=== PATIENT | male | born 1945 | race Asian ===

== ENCOUNTER 2025-06-23 15:37 | Inpatient (IN) | payer MEDICAID ==
[~2025-06-23] VITALS: Ht 172.7 cm; Wt 74.8 kg
[2025-06-23 18:02] LABS: RED BLOOD CELL COUNT(AUTO) 4.18 MIL/uL (4.5-6.0); RED CELL DISTRIBUTION WIDTH 13.3 % (11.5-15.0); WHITE BLOOD COUNT (AUTO) 5.8 K/uL (4.3-11.0)
[2025-06-23 18:06] LABS: PLATELET COUNT (AUTO) 117 K/uL (150-450)
[2025-06-23 18:06] LABS: APPEARANCE,URINE CLEAR (CLEAR); BLOOD, URINE 1+ Ery/uL (NEGATIVE); LEUKOCYTE ESTERASE ,URINE NEGATIVE (NEGATIVE); NITRITE, URINE NEGATIVE (NEGATIVE); UGLUCOSE TRACE mg/dL (NEGATIVE)
[2025-06-23 18:08] LABS: ADD URINE CULTURE NO; SQUAMOUS EPITHELIAL CELL,UR None Seen /HPF (None Seen)
[2025-06-23 18:19] LABS: ASPARTATE AMINOTRANSFERASE 18 U/L (15-37); CALCIUM, SERUM 8.3 mg/dL (8.5-10.1); CREATININE 0.9 mg/dL (0.6-1.3); SODIUM SERUM 138 mmol/L (136-145); UREA NITROGEN, BLOOD 24 mg/dL (7-18)
[2025-06-23 18:19] LABS: AMPHETAMINE, URINE NEGATIVE (NEGATIVE); BARBITURATE, URINE NEGATIVE (NEGATIVE); CANNABINOID, URINE NEGATIVE (NEGATIVE)
[2025-06-23 18:30] LABS: BENZODIAZEPINE, URINE NEGATIVE (NEGATIVE); COCCAINE, URINE NEGATIVE (NEGATIVE); OPIATE, URINE NEGATIVE (NEGATIVE)
[2025-06-23 18:32] LABS: TOTAL PROTEIN, SERUM 6.1 g/dL (6.4-8.2)
[2025-06-23 18:40] LABS: ALCOHOL, BLOOD < 3 mg/dL (0-10)
[2025-06-23] MEDS ORDERED: LEVO100T9 PO (19:18)
[2025-06-23] MEDS ORDERED: DOCU250C76 PO (19:18)
[2025-06-23] MEDS ORDERED: TRAZ-252 PO (19:18)
[2025-06-23] MEDS ORDERED: ATOR10TA PO (19:18)
[2025-06-23] MEDS ORDERED: CARB1TAB21 PO (19:18)
[2025-06-23] MEDS ORDERED: CHOL200010 PO (19:18)
[2025-06-23] MEDS ORDERED: LOSA25TA27 PO (19:18)
[2025-06-23] MEDS ORDERED: OLAN5TAB3 PO (19:18)
[2025-06-23] MEDS ORDERED: ESCI10TA PO (19:18)
[2025-06-23] MEDS ORDERED: CEPHALEXIN MONOHYDRATE 500 MG CAPSULE PO ONE (19:35)
[2025-06-23] MEDS: CEPHALEXIN MONOHYDRATE 500 MG CAPSULE PO ONE (19:35)
[2025-06-23 22:30] VITALS: BP 142/67; TEMP 98.2; O2SAT 98
[2025-06-23] MEDS ORDERED: MAGNESIUM HYDROXIDE 30 ML UDC PO PRN (22:30)
[2025-06-23] MEDS ORDERED: QUETIAPINE FUMARATE 25 MG TABLET PO PRN (22:30)
[2025-06-23] MEDS ORDERED: MAG HYDROX/AL HYDROX/SIMETH 30 ML UDC PO PRN (22:30)
[2025-06-23] MEDS ORDERED: ACETAMINOPHEN 325 MG TABLET PO PRN (22:30)
[2025-06-23] MEDS ORDERED: ZOLPIDEM TARTRATE 5 MG TABLET PO PRN (22:30)
[2025-06-23] MEDS: BLOOD SUGAR DIAGNOSTIC 1 EACH STRIP IN ONE (23:08)
[2025-06-24] MEDS ORDERED: Z GUARD REMEDY 4 OZ OINT TP PRN (01:30)
[2025-06-24] MEDS: LEVOTHYROXINE SODIUM 100 MCG TABLET PO SCH (06:14)
[2025-06-24 07:59] LABS: PLATELET COUNT (AUTO) 121 K/uL (150-450); RED BLOOD CELL COUNT(AUTO) 4.21 MIL/uL (4.5-6.0); RED CELL DISTRIBUTION WIDTH 12.9 % (11.5-15.0); WHITE BLOOD COUNT (AUTO) 5.3 K/uL (4.3-11.0)
[2025-06-24 08:00] VITALS: BP 107/57; TEMP 97.8; O2SAT 96
[2025-06-24 08:12] LABS: CALCIUM, SERUM 8.3 mg/dL (8.5-10.1); CREATININE 0.8 mg/dL (0.6-1.3); SODIUM SERUM 140.0 mmol/L (136-145); UREA NITROGEN, BLOOD 14.0 mg/dL (7-18)
[2025-06-24 08:18] LABS: LDL 69 mg/dL (0-99)
[2025-06-24] MEDS: CHOLECALCIFEROL 1,000 UNIT TABLET (VIT D3) PO SCH (08:44)
[2025-06-24] MEDS: DOCUSATE SODIUM 250 MG CAPSULE PO SCH (08:44)
[2025-06-24] MEDS: CARBIDOPA/LEVODOPA 25/100 MG 1 UDTAB PO SCH (08:45)
[2025-06-24] MEDS: ATORVASTATIN 10 MG TABLET PO SCH (08:45)
[2025-06-24] MEDS: LOSARTAN POTASSIUM 25 MG TABLET PO SCH (08:45)
[2025-06-24] MEDS: POTASSIUM CHLORIDE 20 MEQ TAB.PRT.SR PO ONE (09:08)
[2025-06-24 16:07] VITALS: BP 127/71; TEMP 97.8; O2SAT 99
[2025-06-24 20:00] VITALS: BP 119/58; TEMP 98.1; O2SAT 93
[2025-06-24] MEDS: QUETIAPINE FUMARATE 25 MG TABLET PO SCH (21:05)
[2025-06-24] MEDS ORDERED: ZOLPIDEM TARTRATE 5 MG TABLET PO PRN (22:00)
[2025-06-25 07:59] LABS: CALCIUM, SERUM 8.6 mg/dL (8.5-10.1); CREATININE 0.8 mg/dL (0.6-1.3); SODIUM SERUM 140.0 mmol/L (136-145); UREA NITROGEN, BLOOD 20.0 mg/dL (7-18)
[2025-06-25 08:00] VITALS: BP 129/69; TEMP 97.7; O2SAT 96
[2025-06-25 08:15] LABS: PLATELET COUNT (AUTO) 126 K/uL (150-450); RED BLOOD CELL COUNT(AUTO) 4.28 MIL/uL (4.5-6.0); RED CELL DISTRIBUTION WIDTH 13.2 % (11.5-15.0); WHITE BLOOD COUNT (AUTO) 6.0 K/uL (4.3-11.0)
[2025-06-25] MEDS: Z GUARD REMEDY 4 OZ OINT TP SCH (08:25)
[2025-06-25 16:08] VITALS: BP 109/54; TEMP 97.5; O2SAT 95
[2025-06-25 20:58] VITALS: BP 112/66; TEMP 98; O2SAT 98
[2025-06-26 07:00] VITALS: BP 108/69; TEMP 97.5; O2SAT 97
[2025-06-26 07:21] LABS: PLATELET COUNT (AUTO) 133 K/uL (150-450); RED BLOOD CELL COUNT(AUTO) 4.44 MIL/uL (4.5-6.0); RED CELL DISTRIBUTION WIDTH 13.1 % (11.5-15.0); WHITE BLOOD COUNT (AUTO) 5.7 K/uL (4.3-11.0)
[2025-06-26 07:38] LABS: CALCIUM, SERUM 8.9 mg/dL (8.5-10.1); CREATININE 0.8 mg/dL (0.6-1.3); SODIUM SERUM 140.0 mmol/L (136-145); UREA NITROGEN, BLOOD 18.0 mg/dL (7-18)
[2025-06-26 16:00] VITALS: BP 100/58; TEMP 98.1; O2SAT 95
[2025-06-26] MEDS: ENSURE ENLIVE 237 ML LIQUID (VANILLA) PO SCH (16:20)
[2025-06-26 20:00] VITALS: BP 147/64; TEMP 98.1; O2SAT 96
[2025-06-27 08:00] VITALS: BP 115/59; TEMP 97.8; O2SAT 96
[2025-06-27 16:04] VITALS: BP 100/59; TEMP 97.8; O2SAT 96
[2025-06-27 20:49] VITALS: BP 133/75; TEMP 98.2; O2SAT 96
[2025-06-28 08:00] VITALS: BP 111/63; TEMP 97.8; O2SAT 96
[2025-06-28 16:00] VITALS: BP 105/55; TEMP 98.7; O2SAT 98
[2025-06-29 08:00] VITALS: BP 100/54; TEMP 98.7; O2SAT 98
[2025-06-29 16:00] VITALS: BP 103/58; TEMP 97.8; O2SAT 98
[2025-06-29 19:50] VITALS: BP 116/62; TEMP 97.8; O2SAT 98
[2025-06-30 08:00] VITALS: BP 133/72; TEMP 98; O2SAT 100
[2025-06-30 16:00] VITALS: BP 106/63; TEMP 97.9; O2SAT 96
[2025-06-30 21:48] VITALS: BP 139/65; TEMP 98.1; O2SAT 97
[2025-07-01 08:00] VITALS: BP 120/65; TEMP 98.2; O2SAT 96
[2025-07-01 16:00] VITALS: BP 126/62; TEMP 98.6; O2SAT 98
[2025-07-01 20:00] VITALS: BP 122/58; TEMP 98.1; O2SAT 96
[2025-07-02 08:00] VITALS: BP 130/68; TEMP 98.4; O2SAT 95
[2025-07-02 16:18] VITALS: BP 131/67; TEMP 97.8; O2SAT 98
[2025-07-02 22:12] VITALS: BP 140/66; TEMP 97.9; O2SAT 97
[2025-07-03 08:18] VITALS: BP 143/68; TEMP 97.8; O2SAT 96
[2025-07-03 16:06] VITALS: BP 106/63; TEMP 97.5; O2SAT 95
[2025-07-03 20:48] VITALS: BP 130/67; TEMP 98; O2SAT 100
[2025-07-04 08:00] VITALS: BP 113/61; TEMP 98.6; O2SAT 96
[2025-07-04 15:13] VITALS: BP 100/52; TEMP 98.5; O2SAT 96
[2025-07-04 20:35] VITALS: BP 121/67; TEMP 98.3; O2SAT 97
[2025-07-05 08:00] VITALS: BP 126/66; TEMP 97.7; O2SAT 97
[2025-07-05 17:02] VITALS: BP 134/67; TEMP 98.1; O2SAT 95
[2025-07-05 19:49] VITALS: BP 112/62; TEMP 98.2; O2SAT 96
[2025-07-06 08:00] VITALS: BP 108/60; TEMP 97.8; O2SAT 98
[2025-07-06 09:34] VITALS: BP 133/90
[2025-07-06] MEDS ORDERED: DOCU250C76 PO (10:59)
[2025-07-06] MEDS ORDERED: LEVO100T9 PO (10:59)
[2025-07-06] MEDS ORDERED: ATOR10TA PO (10:59)
[2025-07-06] MEDS ORDERED: CHOL200010 PO (10:59)
[2025-07-06] MEDS ORDERED: LOSA25TA27 PO (10:59)
[2025-07-06] MEDS ORDERED: CARB1TAB21 PO (10:59)
== END 2025-07-06 12:45 | disposition home or self-care (01) | DRG 750 ==
LOC: ER 16:14 → GPS 21:42
PROVIDERS: ADMIT Psychiatry & Neurology Psychiatry; ATTEND Nurse Practitioner Acute Care
DX: F33.3 Major depressive disorder, recurrent, severe with psychotic symptoms (principal); E44.1 Mild protein-calorie malnutrition; F29 Unspecified psychosis not due to a substance or known physiological condition; E88.09 Other disorders of plasma-protein metabolism, not elsewhere classified; G20.A1 Parkinson's disease without dyskinesia, without mention of fluctuations; L89.626 Pressure-induced deep tissue damage of left heel; E86.0 Dehydration; F41.9 Anxiety disorder, unspecified; E78.5 Hyperlipidemia, unspecified; E03.9 Hypothyroidism, unspecified; E87.6 Hypokalemia; F02.83 Dementia in other diseases classified elsewhere, unspecified severity, with mood disturbance; I10 Essential (primary) hypertension; Z91.81 History of falling; Z91.51 Personal history of suicidal behavior; Z81.8 Family history of other mental and behavioral disorders; Z79.890 Hormone replacement therapy; Z79.899 Other long term (current) drug therapy; R45.851 Suicidal ideations; R73.9 Hyperglycemia, unspecified
CPT/HCPCS: 36415; 70450-TC; 80048-TC; 80061-TC; 80076-TC; 81001; 82962-TC; 84439-TC; 84443-TC; 84481; 85025-TC; 87081-TC; 87086-TC; 97110-TC; 97112-TC; 97116-TC; 97530-TC; G0480